=== PATIENT | female | born 1945 | race Caucasian/White ===

== ENCOUNTER → 2017-03-20 | Outpatient (CLI) | payer OTHER, MEDICARE ==
[~2017-03-20] MED LIST: ACETAMINOPHEN500 M1 PO; ACIPHEX 20 MG T20 MG PO; ACIPHEX PO; ADVAIR 100-501 EACH INH; ASPIRIN325 PO; BENADRYL25 MG PO; CARDIZEM CD240 MG PO; CELEBREX 200 M200 M1 PO; CEPACOL SORE T1 EAC8 PO; CIPRO500 MG PO; CLOBETASOL EMOL15 GM TP; COLACE100 MG PO; COZAAR 50 MG TA50 MG PO; DILTIAZEM 24HR240 M1 PO; EVISTA PO; FENTANYL PA12 MCG/HR TD; FLAGYL500 MG PO; FLEXERIL PO; FLUCONAZOLE200 MG PO; FOSAMAX 70 MG T70 MG PO; GLYCOPYRROLATE 11 MG PO; HORIZANT600 MG PO; HYDROCHLOROTHIA25 M2 PO; MELOXICAM7.5 MG PO; NIZORAL120 ML TOP; NUCYNTA50 MG PO; PENNSAID150 ML; REGLAN 5 MG TAB5 MG PO; TIZANIDINE HCL 22 M1 PO; TRANSDERM-SCO1 PATC1 TD; VITAMIN D5000 UNIT PO; ZOFRAN ODT4 MG PO; [UNRECOGNIZED DRUG - OTHER] TOP
== END ==
LOC: NUC 09:04
DX: I47.1 Supraventricular tachycardia (principal)

== ENCOUNTER → 2017-03-23 | Outpatient (CLI) | payer OTHER, MEDICARE ==
[2017-03-23 15:48] LABS: ABSOLUTE NEUTROPHILS 8.2 thou/uL (1.4-8.2); HEMATOCRIT 42.4 % (37.0-47.0); HEMOGLOBIN 14.5 gm/dL (12.0-15.0); LYMPHOCYTES 14.3 % (24.0-44.0); MCH 30.7 pg (26.0-34.0); MCHC 34.1 g/dL (28.0-37.0); MONOCYTES 4.7 % (1.0-8.0); PLATELET COUNT 148 thou/uL (150-400); RBC 4.71 mil/uL (4.20-5.00); RDW 14.7 % (10.5-14.5); WBC 10.3 thou/uL (4.0-11.0)
[2017-03-23 15:52] LABS: MANUAL DIFF NO
== END ==
LOC: LAB 15:12
PROVIDERS: Allergy & Immunology
DX: R06.02 Shortness of breath (principal); M48.56XA Collapsed vertebra, not elsewhere classified, lumbar region, initial encounter for fracture

== ENCOUNTER → 2017-06-26 | Outpatient (CLI) | payer OTHER, MEDICARE | LOC: RAD 09:45 | DX: Z12.31 Encounter for screening mammogram for malignant neoplasm of breast (principal) ==

== ENCOUNTER → 2018-04-01 | Outpatient (CLI) | payer OTHER, MEDICARE | LOC: NUC 06:29 | DX: M81.0 Age-related osteoporosis without current pathological fracture (principal) ==

== ENCOUNTER → 2018-05-10 | Outpatient (CLI) | payer OTHER, MEDICARE ==
[~2018-05-10] VITALS: Ht 157.5 cm; Wt 68.0 kg
[~2018-05-10] MED LIST changes: +ASPIR 8181 MG PO; +COZAAR 50 MG TA50 M2 PO; +DIFLUCAN200 MG PO; +FLONASE 0.05%50 MCG NASAL; +HYOSCYAMINE0.125 MG PO; +PROBIOTIC1 EAC1 PO
--- NOTE | ~2018-05-10 | PATH ---
[facility] [place] [address] PATHOLOGY RPT PROCEDURE Name: RYLIE BENNETT Room #: REG [facility] Bernadette.#: [id number] Admission: 05/10/18 Date of : 47 Discharge: Report #: [id number] Path Case #: [id number] [facility] Accession Number: [id number] . 01 Material submitted: . PART A: RANDOM COLON BIOPSIES PART B: POLYP AT ASCENDING COLON PART C: POLYP AT TRANSVERSE COLON . 02 Diagnosis: A. "Random colon biopsies R/O microscopic colitis", biopsy: - Colonic mucosa with mild reactive changes and focal active colitis; no dysplasia seen. (See comment) . B. "Polyp at ascending colon", biopsy: - Tubular adenoma; no high grade dysplasia. . C. "Polyp at transverse colon", biopsy: - Tubular adenoma; no high grade dysplasia. [facility]/05/11/2018 . 02 Comment: Focal active colitis can be seen in resolving infectious-type colitis, incidentially with bowel preparation and quiescent chronic idiopathic inflammatory bowel disease. No increased chronic inflammation or chronic architectural changes are identified. Clinical and endoscopic correlation is recommended. (CLW:db; 05/11/2018) . 02 Electronically signed: . Maggi Ramirez MD, Pathologist NPI- [id number] . 01 Gross description: . A. Received in formalin labeled "Rylie Bennett, random colon biopsies rule out microscopic colitis" and consists of 4 soft smith tissue fragments ranging in size from 0.2 cm-0.4 cm. They are entirely submitted as A1. . B. Received in formalin labeled "Rylie Bennett, polyp at ascending colon" and consists of 2 soft smith tissue fragment each averaging 0.2 cm. They are entirely submitted as B1. . C. Received in formalin labeled "Rylie Bennett, polyp transverse colon" and consists of a 0.3 cm soft smith pink fragment of tissue fragments fragment which is entirely submitted as C1. (CARLIN; 05/10/2018) /[facility]BR [address] [address] PATHOLOGY RPT PROCEDURE Name: RYLIE BENNETT Room #: REG [facility]#: [id number] Admission: 05/10/18 Date of : 47 Discharge: Report #: [id number] Path Case #: [id number] . 02 Pathologist provided ICD-10: D12.2, D12.3, K52.9 . 02 CPT . 405534, 034864, 424326 Performed at: [address], [place], [place] [id number] MD Zaire Pimentel MD Phone: [phone] Performed at: [address] [id number] MD Jessica Thayer MD Phone: [phone]
--- NOTE | ~2018-05-10 | P ---
[facility] [place] [address] [place] [address] PROCEDURE REPORT Name: ROBBIN BENNETT Room #: REG [facility]#: [id number] Admission: 05/10/18 Attend Phys: Stan Benson Discharge: Date of : 47 Report #: [id number] THIS REPORT FOR: //name// CC: Stan Shah FAM unknown Jonathan Bhatia MD DATE OF SERVICE: 05/10/2018 PROCEDURE PERFORMED: Colonoscopy with biopsies. HISTORY OF PRESENT ILLNESS: The patient is a 72-year-old female who was seen by myself in the office on 04/06/2018. She had a hospitalization in December for diverticulitis, was treated with antibiotics and then was diagnosed with C. diff and underwent 3 rounds of vancomycin and also was treated with Dificid. At the time of the office visit, she was still having some loose stools as well as abdominal pain. Last colonoscopy was in 2014 and pandiverticulosis was noted. No family history of colon cancer. At the time of the visit, I recommended repeating her C. diff. Stool study on 04/07/2018 was negative for C. diff. Plan is for colonoscopy. DESCRIPTION OF PROCEDURE: The risks and benefits of the procedure were explained to the patient and those risks including but not limited to bleeding, perforation and the risk of sedation. She understood these risks and gave informed consent. Sedation was given using propofol per anesthesia. Next, a digital rectal exam was initially performed, which was normal. Next, using a standard a pediatric Olympus colonoscope, the scope was placed in the patient's anus and advanced under direct vision to the cecum. The overall prep was good. I had difficulty advancing the scope through the sigmoid colon. This was somewhat narrowed. Diverticulosis was noted throughout the entire colon. The cecum and ileocecal valve were normal in appearance. In the ascending colon, a 5 mm sessile polyp was noted and this was removed with cold forceps. Transverse colon, a 4 mm sessile polyp also noted and removed with cold biopsy forceps. Random biopsies were also obtained today to rule out the possibility of microscopic colitis. There was no evidence of colitis or pseudomembranes throughout the exam. Again, diverticulosis was noted throughout the colon but the majority of these, which were noted in the sigmoid colon. There was also a narrowing in the sigmoid colon, but no evidence of masses or no mass lesion was noted. The rectal mucosa was normal. On retroflexion, small nonbleeding internal hemorrhoids were noted. The scope was then withdrawn and the procedure terminated and the patient tolerated the procedure well. IMPRESSION: 1. Pandiverticulosis. 2. Multiple diverticula in the sigmoid colon with narrowing in this area likely [facility] [address] [place] [address] PROCEDURE REPORT Name: ROBBIN BENNETT Room #: REG CL Abdiel#: [id number] Admission: 05/10/18 Attend Phys: Stan Benson Discharge: Date of : 47 Report #: [id number] due to scarring. No active diverticulitis noted. 3. Two small colonic polyps. 4. Internal hemorrhoids. RECOMMENDATIONS: 1. Await biopsy results. 2. Continue probiotics. Thank you for allowing me to participate in her care. <ELECTRONICALLY SIGNED> By: Stan Shah MD 05/14/18 1538 [id number] 1211 Stan Shah MD /nt
== END | disposition home or self-care (01) ==
LOC: GI 07:24
DX: D12.3 Benign neoplasm of transverse colon (principal); D12.2 Benign neoplasm of ascending colon; K52.9 Noninfective gastroenteritis and colitis, unspecified; K57.30 Diverticulosis of large intestine without perforation or abscess without bleeding; K64.8 Other hemorrhoids; I10 Essential (primary) hypertension; Z90.49 Acquired absence of other specified parts of digestive tract; Z98.890 Other specified postprocedural states; Z90.710 Acquired absence of both cervix and uterus; Z98.41 Cataract extraction status, right eye; Z98.42 Cataract extraction status, left eye; Z87.19 Personal history of other diseases of the digestive system; Z79.891 Long term (current) use of opiate analgesic; Z79.899 Other long term (current) drug therapy; Z79.82 Long term (current) use of aspirin
CPT/HCPCS: 62110; 62900

== ENCOUNTER 2018-05-18 14:11 | Inpatient (IN) | payer OTHER, MEDICARE ==
[~2018-05-18] VITALS: Ht 157.5 cm; Wt 68.0 kg
--- NOTE | ~2018-05-18 | HC ---
[facility] [place] [address] [place] [address] CONSULTATION Name: ROBBIN BENNETT Room #: 460-P ADM IN M.R.#: [id number] Admission: 05/18/18 Attend Phys: Jonathan Bhatia MD Discharge: Date of : 47 Report #: [id number] THIS REPORT FOR: //name// CC: FAM unknown Jonathan Bhatia DATE OF SERVICE: 05/20/2018 REFERRING PROVIDER: Jonathan Bhatia MD. REASON FOR CONSULT: Abdominal pain. HISTORY OF PRESENT ILLNESS: The patient is a 73-year-old female who has had 3 prior bouts of sigmoid diverticulitis, treated with antibiotics, who was most recently hospitalized in December where she contracted C. diff colitis. The patient underwent 3 rounds of vancomycin and Dificid and is still having loose stools and intermittent abdominal pain. She underwent colonoscopy 10 days ago and recently had a repeat C. diff assay that was negative on 04/07/2018. Her colonoscopy showed pandiverticulosis with multiple diverticula in the sigmoid colon with slight narrowing due to scarring, but no active diverticulitis was noted. Unfortunately, she has developed recurrent left lower abdominal pain with increasing loose stools and low-grade fever with chills and nausea, so she presented to the Emergency Room for evaluation. Workup with laboratories and a CT scan of the abdomen and pelvis were obtained. The patient initially had a low level leukocytosis with a white blood cell count of 11,600, which has improved to 6400 today with antibiotic therapy. Her CT scan of the abdomen and pelvis showed acute sigmoid diverticulitis without perforation and widespread colonic pandiverticulosis consistent with her colonoscopy findings. The patient has been admitted and I am asked to evaluate from a surgical standpoint as this is her fourth bout of acute sigmoid diverticulitis. PAST MEDICAL HISTORY: Hypertension, hypercholesterolemia, prior cardiac ablation, multiple bouts of diverticulitis, recent C. diff colitis, prior hysterectomy, cholecystectomy and appendectomy. HOME MEDICATIONS: Tylenol, diltiazem, Benadryl, aspirin, hydrochlorothiazide, losartan, Diflucan, hyoscyamine, lactobacillus, Flonase, clobetasol topical cream, Fosamax. ALLERGIES: SEVERAL AND INCLUDE CODEINE, HYDROCODONE, OXYCODONE, ADHESIVE, MORPHINE AND AMOXICILLIN, WHICH ALL CAUSE NAUSEA OR ITCHING. SOCIAL HISTORY: The patient does not utilize tobacco, alcohol or illicit drugs. FAMILY HISTORY: Reviewed and noncontributory. [address] [address] CONSULTATION Name: ROBBIN BENNETT Room #: 460-P [facility] ..#: [id number] Admission: 05/18/18 Attend Phys: Jonathan Bhatia MD Discharge: Date of : 47 Report #: [id number] REVIEW OF SYSTEMS: GENERAL: The patient denies current nocturnal fevers or chills. HEENT: No change in vision, change in hearing. NECK: No swelling or difficulty swallowing. HEART: No chest pain or palpitations. LUNGS: No cough or shortness of breath. ABDOMEN: Abdominal pain, but no current nausea or vomiting. GENITOURINARY: No dysuria or hematuria. ENDOCRINE: No polyuria or polydipsia. HEMATOLOGIC: No history of bleeding or easy bruising. EXTREMITIES: No history of weakness or limited range of motion. NEUROLOGIC: No history of syncope or near syncopal episodes. SKIN AND INTEGUMENT: No history of abnormal lesions or moles. PSYCHIATRIC: No history of anxiety or depression. PHYSICAL EXAMINATION: VITAL SIGNS: Temperature 97.3, pulse 77, respirations 18, blood pressure 111/44. She is 5 feet 2 inches tall, weighs 150 pounds. GENERAL: Alert and oriented, in no acute distress. HEENT: Normocephalic, atraumatic. Pupils equal, round, reactive to light. NECK: Supple, without lymphadenopathy. Trachea midline. HEART: Regular rate and rhythm. LUNGS: Clear to auscultation bilaterally. ABDOMEN: Soft, nondistended. She is tender to palpation in left lower quadrant, but does not have any guarding, rebound or peritoneal signs or symptoms. GENITOURINARY: Normal external female genitalia. EXTREMITIES: No clubbing, cyanosis or edema. NEUROLOGIC: Cranial nerves 2-12 are grossly intact. PSYCHIATRIC: Normal mood and affect. SKIN AND INTEGUMENT: No abnormal lesions or moles. LABORATORY AND X-RAY DATA: CBC shows white blood cell count 6400, hemoglobin 11.8, platelets 116,000. Creatinine 0.8. Recent albumin was 3.9. Urinalysis was negative. Recent colonic polypectomies showed no dysplasia and random colon biopsies showed focal active colitis, likely from the sigmoid colon. ASSESSMENT AND PLAN: A 73-year-old female with a fourth bout of acute sigmoid diverticulitis, superimposed on pandiverticulosis and recent Clostridium difficile colitis. The patient is being treated with antibiotic therapy at this time and is currently feeling slightly better and has had normalization of her labs. As this is her fourth bout, I do recommend sigmoid colectomy once she has cleared this acute infectious episode which does take typically 4-6 weeks' time. She does not necessitate on another colonoscopy prior to sigmoid colectomy as she just recently obtained one and her polypectomies returned without dysplasia. All the above was discussed with the patient in detail and she and her [address] [place] [address] CONSULTATION Name: ROBBIN BENNETT Room #: 460-P ADM IN M.R.#: [id number] Admission: 05/18/18 Attend Phys: Jonathan Bhatia MD Discharge: Date of : 47 Report #: [id number] agree to proceed as outlined. I sincerely appreciate this consult. I will follow along while hospitalized and leave any further recommendations in the patient's chart as appropriate. <ELECTRONICALLY SIGNED> By: Humaira Rob MD, FACS 05/21/18 0839 1323 30 Humaira Rob MD, FACS /nt
--- NOTE | ~2018-05-18 | HC ---
[facility] [place] [address] [place] [address] CONSULTATION Name: RYLIE BENNETT Room #: 460-P ADM IN M.R.#: [id number] Admission: 05/18/18 Attend Phys: Jonathan Bhatia MD Discharge: Date of : 47 Report #: [id number] THIS REPORT FOR: //name// CC: FAM unknown Jonathan Bhatia DATE OF SERVICE: 05/22/2018 CONSULTATION: Infectious diseases. HISTORY OF PRESENT ILLNESS: Rylie Bennett is a 73-year-old white female admitted to the hospital on 05/18/2018 with what appeared to be another episode of diverticulitis. The patient was treated with Zosyn. She did improve, but then developed more diarrhea with 7-8 watery stools per day. She said that her pain felt more like her C. difficile episodes, which she had in December. A stool for C. difficile came back positive. In this setting, infectious disease consultation was requested. The patient had a history of C. difficile in December after being treated for respiratory infection. This resolved, and her bowels are doing okay. This is described as her fourth episode of diverticulitis and they are hoping to do a partial colectomy after the acute inflammation resolves. PAST MEDICAL HISTORY: Significant for hypertension, hyperlipidemia, diverticulitis, diverticulosis. The patient had atrial arrhythmias, which were treated with a cardiac ablation with good result. PAST SURGICAL HISTORY: Includes cholecystectomy, appendectomy, hysterectomy, sinus surgery, laminectomy, rotator cuff surgery, cataract surgery, Achilles tendon surgery. ALLERGIES: THE PATIENT HAS ALLERGIES TO A NUMBER OF NARCOTICS INCLUDING CODEINE, HYDROCODONE, OXYCODONE, MORPHINE. SHE NOTES AUGMENTIN CAUSES NAUSEA AND VOMITING. MEDICATION RECONCILIATION: Current medications include saline IV, ondansetron 4 mg q. 6 hours p.r.n., losartan 50 mg daily, aspirin 81 mg daily, diltiazem 250 mg slow release daily, Benadryl 25 mg p.o. p.r.n., Zosyn 3.375 four times a day, Lactobacillus 1 capsule 3 times a day, fluticasone 50 mcg aerosol b.i.d., vancomycin 125 mg p.o. q.i.d., hyoscyamine 0.125 mg q.4 p.r.n., fentanyl 50 mcg q. 2 IV p.r.n., potassium supplement. FAMILY HISTORY: Noncontributory. SOCIAL HISTORY: The patient is . She has no history of tobacco, alcohol nor drugs. 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 REVIEW OF SYSTEMS: GENERAL: The patient did have fevers prior to coming to the hospital, these have resolved. The patient has headache, sinus congestion, sore throat, trouble swallowing. She has overwhelming weakness, malaise and is generally frustrated. The patient denies cough, chest pain or shortness of breath. The patient denies nausea, vomiting. She has abdominal pain, mostly in the left lower quadrant. She has the diarrhea, which she describes is like a liquid powder, with frequent stools. She did not notice the odor like when she had C. difficile in December. The patient denies urinary symptoms, no pain in the extremities. PHYSICAL EXAMINATION: GENERAL: The patient appears her stated age, alert, oriented, comfortable, pleasant, not in any distress. VITAL SIGNS: Temperature is normal, pulse is 78. SKIN: Shows no rash or lesions. ENT: Negative. HEART: Heart sounds normal. LUNGS: Clear. ABDOMEN: Belly obese, soft, mild to moderately tender. Bowel sounds present. EXTREMITIES: Unremarkable. LABORATORY DATA: White count 4.8, hemoglobin has gone from 13.8-11.4, hematocrit 33%, platelet 118,000. Electrolytes: Sodium 143, potassium 2.7-3.2, chloride 116, bicarbonate 22, BUN and creatinine are normal, glucose 124. C. difficile study is negative for toxin and DNA. IMPRESSION: 1. Clostridium difficile colitis. 2. Diverticulitis. The patient has a difficult situation as the diverticulitis requires antibiotic treatment. However, most antibiotics tend to make difficult to clear C. difficile because they kill off so much of the normal competing davide. I agree with the vancomycin 4 times a day. We can increase the probiotics to Lactobacillus 2 tablets t.i.d. and add Saccharomyces boulardii twice a day. I would like to replace the Zosyn with tigecycline. This is a doxycycline type drug that has good activity against GI davide including anaerobes, but also has activity against C. difficile as well. I am hopeful that the C. difficile can be treated with the oral vancomycin and we can stop antibiotics for the diverticulitis once it settles down. The patient will be an excellent candidate for surgical treatment of her [facility] [address] [place] [address] CONSULTATION Name: RYLIE BENNETT Room #: 460-P ADM IN .R.#: [id number] Admission: 05/18/18 Attend Phys: Jonathan Bhatia MD Discharge: Date of : 46 Report #: [id number] diverticulitis once the inflammation has resolved, so we do not run into this problem again. If the patient does not respond to this regimen, we could consider using fidaxomicin instead of vancomycin as this is more potent and has a lower relapse rate; however, if the vancomycin will work, it is a more cost effective treatment. Stool transplant is another option. I appreciate the opportunity of input in the care of the patient. I will be happy to follow through the weekend until Dr. Cruz returns on Thursday. <ELECTRONICALLY SIGNED> By: Nik Herman MD 05/23/182054 21 46 Nik Herman MD /nt
[2018-05-18 15:00] VITALS: BP 114/57
[2018-05-18 15:34] LABS: URINE BILIRUBIN NEGATIVE (Negative); URINE BLOOD NEGATIVE (Negative); URINE CLARITY CLEAR; URINE COLOR YELLOW; URINE GLUCOSE-RANDOM* NEGATIVE (Negative); URINE KETONES NEGATIVE (Negative); URINE LEUKOCYTES-REFLEX NEGATIVE (Negative); URINE NITRITE-REFLEX NEGATIVE (Negative); URINE PROTEIN (DIPSTICK) NEGATIVE (Negative); URINE SPECIFIC GRAVITY <= 1.005 (1.005-1.035); URINE UROBILINOGEN 0.2 E.U./dl (0.2-1.0)
[2018-05-18 15:54] LABS: ABSOLUTE NEUTROPHILS 9.6 thou/uL (1.4-8.2); BASOPHILS 0.4 % (0.0-2.0); EOSINOPHILS 0.4 % (0.0-3.0); HEMOGLOBIN 13.8 gm/dL (12.0-15.0); LYMPHOCYTES 10.4 % (24.0-44.0); MCH 29.8 pg (26.0-34.0); MCHC 33.7 g/dL (28.0-37.0); MCV 88.3 fL (80.0-100.0); MONOCYTES 6.2 % (1.0-8.0); PLATELET COUNT 138 thou/uL (150-400); POLYS 82.6 % (36.0-66.0); RBC 4.65 mil/uL (4.20-5.00); RDW 15.6 % (10.5-14.5); WBC 11.6 thou/uL (4.0-11.0)
[2018-05-18 16:08] LABS: CALCIUM 9.5 mg/dL (8.5-10.1)
[2018-05-18 16:09] LABS: POTASSIUM 2.7 mmol/L (3.5-5.1)
[2018-05-18 16:11] LABS: ALBUMIN 3.9 g/dL (3.4-5.0); TOTAL BILIRUBIN 1.1 mg/dL (<0.1-1.0); TOTAL PROTEIN 7.7 g/dL (6.4-8.2)
[2018-05-18 21:13] VITALS: BP 101/62
[2018-05-18 21:17] VITALS: BP 101/62
[2018-05-18 21:49] VITALS: BP 100/55
[2018-05-19 00:04] VITALS: BP 104/55
[2018-05-19 03:38] VITALS: BP 85/45
[2018-05-19 04:58] VITALS: BP 105/54
[2018-05-19 08:00] VITALS: BP 106/49
[2018-05-19 16:00] VITALS: BP 109/53
[2018-05-19 19:45] VITALS: BP 103/59
[2018-05-20 04:07] VITALS: BP 116/59
[2018-05-20 05:30] LABS: MCH 30.1 pg (26.0-34.0); MCHC 33.8 g/dL (28.0-37.0); RBC 3.93 mil/uL (4.20-5.00); WBC 6.4 thou/uL (4.0-11.0)
[2018-05-20 05:32] LABS: HEMOGLOBIN 11.8 gm/dL (12.0-15.0)
[2018-05-20 05:40] LABS: CREATININE 0.8 mg/dL (0.6-1.0); POTASSIUM 3.3 mmol/L (3.5-5.1)
[2018-05-20 08:00] VITALS: BP 111/44
[2018-05-20 15:57] VITALS: BP 107/65
[2018-05-20 19:58] VITALS: BP 107/59
[2018-05-21 03:40] VITALS: BP 102/52
[2018-05-21 05:22] LABS: HEMATOCRIT 33.5 % (37.0-47.0); HEMOGLOBIN 11.4 gm/dL (12.0-15.0); MCH 30.3 pg (26.0-34.0); MCHC 33.9 g/dL (28.0-37.0); MCV 89.2 fL (80.0-100.0); RBC 3.75 mil/uL (4.20-5.00); WBC 4.8 thou/uL (4.0-11.0)
[2018-05-21 05:36] LABS: CALCIUM 7.8 mg/dL (8.5-10.1); CREATININE 0.7 mg/dL (0.6-1.0); POTASSIUM 3.2 mmol/L (3.5-5.1)
[2018-05-21 08:40] VITALS: BP 108/62
[2018-05-21 09:19] LABS: ALBUMIN 2.6 g/dL (3.4-5.0); DIRECT BILIRUBIN 0.1 mg/dL (<0.1-0.3); TOTAL BILIRUBIN 0.5 mg/dL (<0.1-1.0); TOTAL PROTEIN 5.6 g/dL (6.4-8.2)
[2018-05-21 15:54] VITALS: BP 99/54
[2018-05-21 19:53] VITALS: BP 111/47
[2018-05-22 03:48] VITALS: BP 87/43
[2018-05-22 05:00] VITALS: BP 104/55
[2018-05-22 08:15] VITALS: BP 149/88
[2018-05-22 16:00] VITALS: BP 115/65
[2018-05-22 20:02] VITALS: BP 115/57
[2018-05-23 03:59] VITALS: BP 126/61
[2018-05-23 05:57] LABS: HEMATOCRIT 32.3 % (37.0-47.0); HEMOGLOBIN 11.1 gm/dL (12.0-15.0); MCH 30.4 pg (26.0-34.0); MCHC 34.3 g/dL (28.0-37.0); MCV 88.7 fL (80.0-100.0); RBC 3.63 mil/uL (4.20-5.00); RDW 15.3 % (10.5-14.5); WBC 3.1 thou/uL (4.0-11.0)
[2018-05-23 06:17] LABS: ALBUMIN 2.5 g/dL (3.4-5.0); CREATININE 0.6 mg/dL (0.6-1.0); PHOSPHORUS 2.3 mg/dL (2.5-4.9); POTASSIUM 4.2 mmol/L (3.5-5.1)
[2018-05-23 07:50] VITALS: BP 118/74
[2018-05-23 15:30] VITALS: BP 119/66
[2018-05-23 19:21] VITALS: BP 133/70
[2018-05-24 03:51] VITALS: BP 109/62
[2018-05-24 05:14] LABS: HEMATOCRIT 34.2 % (37.0-47.0); HEMOGLOBIN 11.5 gm/dL (12.0-15.0); MCH 30.1 pg (26.0-34.0); MCHC 33.6 g/dL (28.0-37.0); MCV 89.6 fL (80.0-100.0); RBC 3.82 mil/uL (4.20-5.00); RDW 15.5 % (10.5-14.5)
[2018-05-24 05:48] LABS: ALBUMIN 2.6 g/dL (3.4-5.0); CALCIUM 8.4 mg/dL (8.5-10.1); CREATININE 0.7 mg/dL (0.6-1.0); POTASSIUM 4.1 mmol/L (3.5-5.1); TOTAL BILIRUBIN 0.3 mg/dL (<0.1-1.0); TOTAL PROTEIN 5.6 g/dL (6.4-8.2)
[2018-05-24 07:45] VITALS: BP 121/64
[2018-05-24 15:29] VITALS: BP 127/74
[2018-05-24 20:00] VITALS: BP 123/59
[2018-05-25 04:00] VITALS: BP 101/54
[2018-05-25 07:30] VITALS: BP 105/60
[2018-05-25] MEDS ORDERED: VANCOMYCIN HCL10 GM PO (13:34)
[2018-05-25] MEDS ORDERED: CEFDINIR300 MG PO (13:35)
[2018-05-25 14:51] VITALS: BP 105/60
[2018-05-25] MEDS ORDERED: FLAGYL500 MG PO (15:30)
== END 2018-05-25 16:42 | disposition home or self-care (01) | DRG 871 ==
LOC: ER 14:11 → EROBS 18:00 → 4W 18:00 → ENTRNSPT 05-25 16:23 → 4W 05-25 16:42
PROVIDERS: Emergency Medicine; Family Medicine; Hospitalist; Internal Medicine Gastroenterology; Physician Assistant
DX: A41.9 Sepsis, unspecified organism (principal); E43 Unspecified severe protein-calorie malnutrition; A04.72 Enterocolitis due to Clostridium difficile, not specified as recurrent; K57.32 Diverticulitis of large intestine without perforation or abscess without bleeding; K62.5 Hemorrhage of anus and rectum; E87.6 Hypokalemia; D69.6 Thrombocytopenia, unspecified; I10 Essential (primary) hypertension; K44.9 Diaphragmatic hernia without obstruction or gangrene; K57.30 Diverticulosis of large intestine without perforation or abscess without bleeding; Z90.710 Acquired absence of both cervix and uterus; M81.0 Age-related osteoporosis without current pathological fracture; E78.00 Pure hypercholesterolemia, unspecified; K76.0 Fatty (change of) liver, not elsewhere classified; Z96.1 Presence of intraocular lens; Z68.27 Body mass index [BMI] 27.0-27.9, adult; Z88.8 Allergy status to other drugs, medicaments and biological substances; Z91.048 Other nonmedicinal substance allergy status; Z90.49 Acquired absence of other specified parts of digestive tract; Z98.42 Cataract extraction status, left eye; Z98.41 Cataract extraction status, right eye
CPT/HCPCS: 10045

== ENCOUNTER 2018-06-11 16:06 | Inpatient (IN) | payer OTHER, MEDICARE ==
[~2018-06-11] VITALS: Ht 162.6 cm; Wt 68.0 kg
--- NOTE | ~2018-06-11 | HC ---
[facility] [place] [address] CONSULTATION Name: ROBBIN BENNETT Room #: 450-P ADM IN M.R.#: [id number] Admission: 06/11/18 Attend Phys: Jonathan Bhatia MD Discharge: Date of : 47 Report #: [id number] THIS REPORT FOR: //name// CC: Jonathan Bhatia DATE OF SERVICE: 06/14/2018 REASON FOR CONSULTATION: Right shoulder pain. HISTORY OF PRESENT ILLNESS: The patient is a 73-year-old female who was on an escalator last Thursday when she fell down multiple steps. She reports multiple bruises and hematomas with lacerations to her right side of her body. She continues to have some shoulder pain, and we have been asked to evaluate her shoulder. PAST MEDICAL HISTORY: Significant for diverticulitis. ALLERGIES: CODEINE, HYDROCODONE, OXYCODONE, ADHESIVE, MORPHINE, POTASSIUM CLAVULANATE AND AMOXICILLIN. MEDICATIONS: Include acetaminophen, diltiazem, diphenhydramine, aspirin, hydrochlorothiazide, losartan, fluconazole, hyoscyamine, lactobacillus, fluticasone, clobetasol. alendronate sodium. SURGICAL HISTORY: Appendectomy, tonsillectomy, multiple sinus surgeries, hysterectomy, cholecystectomy, right rotator cuff repair approximately 10 years ago, Achilles tendon repair, cardiac ablation, lumbar laminectomy. She is scheduled to undergo partial colectomy for diverticulitis in June. SOCIAL HISTORY: She is . 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 She does not use any ambulatory aids. Denies smoking or drinking alcohol. REVIEW OF SYSTEMS: MUSCULOSKELETAL: Reports multiple lacerations and abrasions to her right and left lower and right upper with a hematoma in her right thigh. NEUROLOGIC: Denies numbness or tingling. PHYSICAL EXAMINATION: GENERAL: The patient is alert and oriented. She interacts appropriately. She is a well-developed, well-nourished female, in no acute distress. Her is at her bedside. VITAL SIGNS: Most recent vital signs show temperature of 36.8, heart rate 87, respiration rate 18, blood pressure 108/57, pulse oximetry is 94% on room air. EXTREMITIES: Examination of her right upper extremity, she is distally neurovascularly intact. Brisk capillary refill. She has some diffuse arthritic [address] [address] CONSULTATION Name: ROBBIN BENNETT Room #: [facility] IN M.R.#: [id number] Admission: 06/11/18 Attend Phys: Jonathan Bhatia MD Discharge: Date of : 47 Report #: [id number] changes to her digits. Her skin is clean, dry and intact. She does have a bandage over the right arm. She has significant amount of ecchymosis in her arm, mild to moderate amount of edema. She is nontender to palpation throughout the hand, wrist, forearm and elbow, some diffuse tenderness in her humerus. There is diffuse mild tenderness at clavicle, none at the sternum. She has some right anterior chest wall tenderness. There is no pain with range of motion of her shoulder. She is able to fully abduct without pain, and internal rotation is normal. Left upper extremity exam: Sensation is intact to light touch throughout. She has brisk capillary refill. She has full fist, full extension on both of her upper extremities. There is no tenderness to palpation throughout the entire left upper extremity. No pain with range of motion of the shoulder, elbow, wrist, forearm or hand. The bilateral lower extremity exam: Sensation is intact to light touch throughout. Brisk cap refill. EHL, FHL, dorsiflexion and plantar flexion are intact. She has no pain with range of motion of entire bilateral lower extremities. LABORATORY DATA: Shows white blood cell count 12.7, hemoglobin 11.6, hematocrit 34.2, platelet count 228. Chemistry is grossly normal. RADIOGRAPHS: AP and oblique view of the right clavicle. No evidence of clavicle fracture. True AP and axillary lateral view of the shoulder did not show any evidence of a proximal humerus fracture. IMPRESSION AND PLAN: Right upper extremity contusion without evidence of fracture or rotator cuff injury. She may do her activity as tolerated and follow up with Dr. Cartwright in a few weeks if her symptoms are not improving. Please call me if needed. By: 1635 1731 Sarah Jarrett MD /nt
[~2018-06-11 16:06] MED LIST changes: +CEFDINIR300 MG PO; +VANCOMYCIN HCL10 GM PO
[2018-06-11 16:08] VITALS: BP 150/68
[2018-06-11 18:43] VITALS: BP 150/68
[2018-06-11 19:29] VITALS: BP 152/77
[2018-06-11 19:35] VITALS: BP 118/62; BP 123/59
[2018-06-11 21:13] LABS: ABSOLUTE NEUTROPHILS 10.7 thou/uL (1.4-8.2); BASOPHILS 0.2 % (0.0-2.0); EOSINOPHILS 0.2 % (0.0-3.0); HEMATOCRIT 34.2 % (37.0-47.0); HEMOGLOBIN 11.6 gm/dL (12.0-15.0); LYMPHOCYTES 7.7 % (24.0-44.0); MCH 30.5 pg (26.0-34.0); MCV 89.8 fL (80.0-100.0); MONOCYTES 7.6 % (1.0-8.0); PLATELET COUNT 228 thou/uL (150-400); POLYS 84.3 % (36.0-66.0); RBC 3.81 mil/uL (4.20-5.00); RDW 15.5 % (10.5-14.5); WBC 12.7 thou/uL (4.0-11.0)
[2018-06-11 21:20] LABS: CALCIUM 8.5 mg/dL (8.5-10.1); CREATININE 0.8 mg/dL (0.6-1.0); POTASSIUM 3.7 mmol/L (3.5-5.1)
[2018-06-12 04:09] VITALS: BP 103/61
[2018-06-12] MEDS ORDERED: DURAGESIC25 MCG/HR TRANSDERM (08:51)
[2018-06-12 13:30] VITALS: BP 103/61
[2018-06-12 15:38] VITALS: BP 130/65
[2018-06-12 19:16] VITALS: BP 127/69
[2018-06-13] VITALS (7 sets, daily range): BP systolic 106–131; BP diastolic 57–81
[2018-06-14 02:55] VITALS: BP 135/77
[2018-06-14 08:00] VITALS: BP 110/61
[2018-06-14 15:47] VITALS: BP 108/57
[2018-06-14 19:20] VITALS: BP 113/66
[2018-06-15 05:18] VITALS: BP 109/68
[2018-06-15] MEDS ORDERED: ONDANSETRON HCL4 M2 PO (07:33)
[2018-06-15 08:44] VITALS: BP 108/59
== END 2018-06-15 12:35 | disposition home or self-care (01) | DRG 604 ==
LOC: ER 16:06 → 4W 18:26 → EROBS 18:26 → 4W 19:22 → ENTRNSPT 06-15 12:20 → EDTRNSPTSTS 06-15 12:23 → 4W 06-15 12:35
PROVIDERS: Physician Assistant
DX: S51.011A Laceration without foreign body of right elbow, initial encounter (principal); E43 Unspecified severe protein-calorie malnutrition; S91.012A Laceration without foreign body, left ankle, initial encounter; S70.11XA Contusion of right thigh, initial encounter; S09.90XA Unspecified injury of head, initial encounter; I10 Essential (primary) hypertension; S40.011A Contusion of right shoulder, initial encounter; K59.00 Constipation, unspecified; W10.0XXA Fall (on)(from) escalator, initial encounter; Z96.1 Presence of intraocular lens; Z68.25 Body mass index [BMI] 25.0-25.9, adult; Z88.6 Allergy status to analgesic agent; Z88.1 Allergy status to other antibiotic agents; Z88.8 Allergy status to other drugs, medicaments and biological substances; Y93.89 Activity, other specified; Y92.89 Other specified places as the place of occurrence of the external cause; Y99.8 Other external cause status; Z90.49 Acquired absence of other specified parts of digestive tract; Z90.710 Acquired absence of both cervix and uterus; Z98.42 Cataract extraction status, left eye; Z98.41 Cataract extraction status, right eye
CPT/HCPCS: 10040

== ENCOUNTER → 2018-06-23 | Outpatient (CLI) | payer OTHER, MEDICARE ==
[~2018-06-23] MED LIST changes: +DURAGESIC25 MCG/HR TRANSDERM; +ONDANSETRON HCL4 M2 PO
== END ==
LOC: HYPER 06:43
DX: S70.11XD Contusion of right thigh, subsequent encounter (principal); S41.101D Unspecified open wound of right upper arm, subsequent encounter; S81.812D Laceration without foreign body, left lower leg, subsequent encounter; S70.12XD Contusion of left thigh, subsequent encounter; I10 Essential (primary) hypertension; M25.511 Pain in right shoulder; M79.81 Nontraumatic hematoma of soft tissue; Z90.710 Acquired absence of both cervix and uterus; Z91.81 History of falling; Z98.49 Cataract extraction status, unspecified eye; X58.XXXD Exposure to other specified factors, subsequent encounter

== ENCOUNTER → 2018-06-25 | Outpatient (CLI) | payer OTHER, MEDICARE | LOC: HYPER 08:02 | DX: S70.11XD Contusion of right thigh, subsequent encounter (principal); S41.101D Unspecified open wound of right upper arm, subsequent encounter; S81.812D Laceration without foreign body, left lower leg, subsequent encounter; I10 Essential (primary) hypertension; M25.511 Pain in right shoulder; M79.662 Pain in left lower leg; M79.81 Nontraumatic hematoma of soft tissue; Z90.710 Acquired absence of both cervix and uterus; Z98.49 Cataract extraction status, unspecified eye; Z91.81 History of falling; X58.XXXD Exposure to other specified factors, subsequent encounter ==

== ENCOUNTER → 2018-06-30 | Outpatient (CLI) | payer OTHER, MEDICARE | LOC: HYPER 06:42 | DX: T81.89XD Other complications of procedures, not elsewhere classified, subsequent encounter (principal); S70.11XD Contusion of right thigh, subsequent encounter; I10 Essential (primary) hypertension; M79.81 Nontraumatic hematoma of soft tissue; M79.662 Pain in left lower leg; Z90.710 Acquired absence of both cervix and uterus; Z90.81 Acquired absence of spleen; X58.XXXD Exposure to other specified factors, subsequent encounter; Y83.8 Other surgical procedures as the cause of abnormal reaction of the patient, or of later complication, without mention of misadventure at the time of the procedure ==

== ENCOUNTER → 2018-07-16 | Outpatient (CLI) | payer OTHER, MEDICARE | LOC: HYPER 08:05 | DX: T81.89XD Other complications of procedures, not elsewhere classified, subsequent encounter (principal); I10 Essential (primary) hypertension; M25.511 Pain in right shoulder; Z91.81 History of falling; Y83.8 Other surgical procedures as the cause of abnormal reaction of the patient, or of later complication, without mention of misadventure at the time of the procedure ==

== ENCOUNTER 2018-08-12 06:04 | Inpatient (IN) | payer OTHER, MEDICARE ==
[2018-08-12] VITALS (8 sets, daily range): BP systolic 78–127; BP diastolic 34–59
[~2018-08-12] VITALS: Ht 157.5 cm; Wt 70.3 kg
--- NOTE | ~2018-08-12 | O ---
[facility] [place] [address] OPERATIVE REPORT Name: ROBBIN BENNETT Room #: 355-P ADM IN M.R.#: [id number] Admission: 08/12/18 Attend Phys: Humaira Rob MD, Discharge: Date of : 47 Report #: [id number] THIS REPORT FOR: //name// CC: Humaira Bhatia DATE OF SERVICE: 08/12/2018 PREOPERATIVE DIAGNOSES: Multiple recurrent bouts of sigmoid diverticulitis. POSTOPERATIVE DIAGNOSES: Multiple recurrent bouts of sigmoid diverticulitis. PROCEDURES PERFORMED: 1. Laparoscopic sigmoid colectomy. 2. Laparoscopic mobilization of splenic flexure. SURGEON: Humaira Rob M.D. CURBSTONE SETTER: SELENE Garcia ANESTHESIA: General endotracheal anesthesia. ESTIMATED BLOOD LOSS: Minimal (less than 5 mL). COMPLICATIONS: None appreciated. SPECIMENS: Sigmoid colon to pathology with open end marking distal. INDICATIONS: The patient is a 73-year-old female who has had multiple bouts of acute sigmoid diverticulitis with ongoing intermittent left lower quadrant abdominal pain. The patient has undergone colonoscopy showing marked abnormal findings in the sigmoid colon consistent with chronic bouts of diverticulitis and as such indication was for resection today. DESCRIPTION OF PROCEDURE: After explaining the risks, benefits and alternatives of the procedure to the patient in detail in the preoperative holding area and obtaining written consent, the patient was brought to the operating room and placed supine on the operating room table. After conducting a thorough timeout procedure verifying correct patient and procedure, the patient was given general endotracheal anesthesia. Once adequate anesthesia was obtained, her SCDs were hooked up to pneumatic compression device and she was given a preoperative dose of antibiotics in line with the SCIP protocol. The patient's abdomen was prepped and draped in standard surgical sterile fashion after positioning her in the low lithotomy position with her legs in the Yellofin stirrups. A 5 mL of 0.5% Marcaine with epinephrine were used to anesthetize the skin 2 cm cephalad to the umbilicus and 2 cm to the patient's right. A #15 bladed scalpel was used [address] [address] OPERATIVE REPORT Name: ROBBIN BENNETT YI Room #: 355-P [facility] IN .R.#: [id number] Admission: 08/12/18 Attend Phys: Humaira Rob MD, Discharge: Date of : 46 Report #: [id number] to create a small skin elizabeth at this location. A 5 mm Visiport was placed over 0-degree 5-mm laparoscope and was introduced through this incision site. Once intra-abdominal placement was verified visually, the obturator for the trocar and laparoscope were both removed and the abdomen was insufflated to 15 mmHg using carbon dioxide gas. The laparoscope was changed to a 5-mm 30-degree laparoscope, which was reintroduced through this trocar. The entire abdomen was evaluated to ensure no injury upon entry. I now placed an additional 5 mm port 2 cm cephalad to the umbilicus and 3 cm of the patient's left and an additional 12 mm port in the right lower quadrant. Both additional trocars were placed under direct vision after anesthetizing the skin at each location with 5 mL of 0.5% Marcaine with epinephrine and I had created small skin nicks using #15 bladed scalpel. The patient was now placed in steep Trendelenburg position with the left side elevated and I proceeded to identify the sigmoid colon, which was scarred to the abdominal wall and the pelvic sidewall. There was a loop of small bowel plastered to it as well. Laparoscopic EndoShears were now used to take down the filmy adhesions between the loops of small bowel and the colon and I was able to ultimately sweep the bowel into the upper abdomen. I now took down the colon off of the anterior abdominal and left pelvic sidewalls using combination of EndoShears and the articulating EnSeal device. Once I had taken all these adhesions down, I was able to elevate the diseased colon cephalad and identified the rectosigmoid juncture, which was healthy. I opened the mesentery with the EnSeal device and proceeded to create a window in the mesentery using the EnSeal device for hemostasis. The [place] 60 mm stapler with a blue load was now entered into the abdomen through the 12 mm port and one blade of the stapler was passed through the window in the mesentery. The stapler was clamped and fired completely transecting the colon at the healthy rectosigmoid juncture. The proximal staple line was elevated and I began taking down the mesentery, staying on the wall of the colon with the EnSeal device for hemostasis as far cephalad as needed until I was proximal to the diseased portion. I now mobilized the white line of Toldt in the patient's left lateral abdomen and performed mobilization of splenic flexure as I was needing extra length to create a tension-free anastomosis. Once I had come all the way up and over the splenic flexure, I was able to get the whole colon to drop down low in the pelvis and an appropriate site for extraction was identified in the suprapubic location. A 10 mL of 0.5% Marcaine with epinephrine were used to anesthetize the skin at that location and a 4 cm transverse skin incision was made using #15 bladed scalpel. Electrocautery was used to carry this down through skin and subcutaneous tissues for hemostasis until I arrived upon the fascia, which was opened longitudinally under direct vision with the laparoscope. I was then able to place a Gelport wound protector through this defect and delivered the colon through the wound protector. The appropriate healthy site proximal to the diseased segment of sigmoid colon was identified and the auto pursestring suture device was placed and the diseased bowel was removed with curved Brink scissors and passed off the field with the open end marking proximal. The auto pursestring suture device was removed and Allis clamps were used to triangulate the open end of bowel. This was sized with the EEA sizers showing the [facility] [address] [place] [address] OPERATIVE REPORT Name: ROBBIN BENNETT YI Room #: 355-P [facility] IN [facility].#: [id number] Admission: 08/12/18 Attend Phys: Humaira Rob MD, Discharge: Date of : 46 Report #: [id number] appropriate sized device to be a 29 EEA. The anvil for the 29 EEA was placed in the open end of colon and the suture from the auto pursestring suture device was tied down. This colon was placed back in the abdomen and the Gelport top was placed on the wound protector and the abdomen was fully reinsufflated. The EEA sizers were now used under direct vision to size the rectum and showed 29 EEA sizer to be appropriate as well. The 29 EEA stapler was then traversed into the rectal stump to the distal staple line where the spike was delivered through the middle portion of the staple line. The spike and anvil were then mated and the stapler was ratcheted down ensuring no twisting of the colon. The stapler was fired and removed showing 2 complete beefy donuts for the anastomotic rings. We now performed a leak test by filling the pelvis with normal saline and clamping the bowel proximally and using the rigid proctoscope to fully insufflate across the anastomosis showing excellent tidaling of the fluid and insufflation of the bowel, but no bubbling whatsoever, thereby signifying a negative leak test. There was one area of a questionable serosal defect approximately 10 cm proximal to the anastomosis and as such 3-0 PDS was placed in the abdomen through the 12 mm port, and I proceeded to oversew this with 3 separate Lembert sutures using the 3-0 PDS intracorporeally. Normal saline was suctioned out of the abdomen. Final evaluation showed a tension-free anastomosis that was appropriately oriented and had robust blood supply. No other pathologic findings were identified. I now closed the 12 mm fascial incision using 0 PDS suture on a Vicente-Livier suture passer device and tied this down under direct vision. The wound protector was removed and the fascia was closed vertically using #1 PDS in standard running fashion. The abdomen was fully desufflated. All remaining trocars were removed under direct vision. A 4-0 Monocryl was used in a standard subcuticular fashion for all skin incisions and Dermabond glue was applied to all skin wounds. At the end of the procedure, all instrument, needle and sponge counts were correct. The patient tolerated the procedure without incident, was awakened in the operating room, transitioned to the recovery room in stable condition with no apparent complications. <ELECTRONICALLY SIGNED> By: Humaira Rob MD, FACS 08/13/18 1012 [id number] [id number] Humaira Rob MD, FACS /nt
--- NOTE | ~2018-08-12 | PATH ---
[facility] [place] [address] PATHOLOGY RPT PROCEDURE Name: RYLIE BENNETT Room #: 361-P ADM IN M.R.#: [id number] Admission: 08/12/18 Date of : 47 Discharge: Report #: [id number] Path Case #: [id number] [facility] Accession Number: [id number] . 01 Material submitted: . SEGMENT OF SIGMOID COLON . 01 Clinical history: . Diverticulitis . 02 Diagnosis: Large intestine, sigmoid colon segment, colectomy: - Acute and chronic diverticulitis associated with focal serositis, compatible with perforation. - Extensive diverticulosis in the background. - Margins of resection unremarkable. - Three reactive lymph nodes. (IUV:manolo; 08/16/2018) QMS/08/16/2018 . 02 Electronically signed: . Jessica Thayer MD, Pathologist NPI- [id number] . 01 Gross description: . The specimen is received in formalin, labeled "Rylie Bennett, segment sigmoid colon" and consists of an unoriented segment of colon measuring 11.0 cm in length and 2.5 cm in diameter with pericolic fat up to 3.0 cm. One margin is closed with tien while the other margin is open. The serosa is pink-smith and partially encased with adhesions. The specimen is opened to reveal a pink-smith mucosa without masses or lesions. The wall is markedly thickened up to 0.9 cm and further sectioning reveal multiple diverticula ranging from 0.3 cm to 1.4 cm including a possible perforation with surrounding mucoid/gelatinous material. Sectioning the pericolic fat reveals no identifiable lymph node candidates. Wood Strip Block Floor Installer sections are submitted as follows: . A1: Open margin A2: Stapled margin A3-A4: Possible perforation A5-A6: Additional diverticula (SDY; 08/13/2018) SYU/SYU . 02 Pathologist provided ICD-10: K57.20, K65.8, K57.32 . 02 [place] [address] PATHOLOGY RPT PROCEDURE Name: RYLIE BENNETT YI Room #: [address] [place] [address] IN .R.#: [id number] Admission: 08/12/18 Date of : 47 Discharge: Report #: [id number] Path Case #: [id number] [facility] . [id number] Specimen Comment: A courtesy copy of this report has been sent to Specimen Comment: [phone], . Specimen Comment: Report sent to and Performed at: [address], [place], [place] [id number] MD Zaire Pimentel MD Phone: [phone] Performed at: [address], [place], [place] [id number] MD Jessica Thayer MD Phone: [phone]
[~2018-08-12 06:04] MED LIST changes: +ALENDRONATE SOD70 MG PO; +CENTRUM SILVER1 EAC4 PO; +VITAMINC500 PO; +XANAX 0.25 MG0.25 MG PO
[2018-08-12 08:47] LABS: HEMATOCRIT 35.5 % (37.0-47.0); HEMOGLOBIN 11.8 gm/dL (12.0-15.0)
[2018-08-12 08:57] LABS: CALCIUM 9.9 mg/dL (8.5-10.1); POTASSIUM 3.7 mmol/L (3.5-5.1)
[2018-08-12 18:04] LABS: HEMATOCRIT 32.4 % (37.0-47.0); HEMOGLOBIN 10.7 gm/dL (12.0-15.0)
[2018-08-13 04:05] VITALS: BP 101/57
[2018-08-13 05:52] LABS: HEMOGLOBIN 10.1 gm/dL (12.0-15.0); MCH 26.7 pg (26.0-34.0); MCHC 31.4 g/dL (28.0-37.0); MCV 84.8 fL (80.0-100.0); RBC 3.78 mil/uL (4.20-5.00); RDW 15.1 % (10.5-14.5)
[2018-08-13 06:05] LABS: CREATININE 1.6 mg/dL (0.6-1.0); POTASSIUM 4.3 mmol/L (3.5-5.1)
[2018-08-13 06:06] LABS: CALCIUM 7.9 mg/dL (8.5-10.1)
[2018-08-13 08:08] VITALS: BP 106/54
[2018-08-13 16:25] VITALS: BP 114/55
[2018-08-13 20:00] VITALS: BP 118/54
[2018-08-14 03:30] VITALS: BP 97/53
[2018-08-14 06:30] LABS: BASOPHILS 0.1 % (0.0-2.0); HEMATOCRIT 26.9 % (37.0-47.0); HEMOGLOBIN 8.9 gm/dL (12.0-15.0); LYMPHOCYTES 4.6 % (24.0-44.0); MCH 27.5 pg (26.0-34.0); MCHC 33.1 g/dL (28.0-37.0); MCV 83.1 fL (80.0-100.0); MONOCYTES 5.9 % (1.0-8.0); PLATELET COUNT 87 thou/uL (150-400); POLYS 89.4 % (36.0-66.0); RBC 3.24 mil/uL (4.20-5.00); RDW 15.5 % (10.5-14.5); WBC 10.1 thou/uL (4.0-11.0)
[2018-08-14 06:36] LABS: CALCIUM 8.4 mg/dL (8.5-10.1); CREATININE 1.5 mg/dL (0.6-1.0)
[2018-08-14 06:41] LABS: POTASSIUM 5.3 mmol/L (3.5-5.1)
[2018-08-14 07:23] VITALS: BP 125/65
[2018-08-14 11:59] VITALS: BP 124/64
[2018-08-14 16:43] VITALS: BP 137/70
[2018-08-14 19:25] VITALS: BP 129/69
[2018-08-15 04:00] VITALS: BP 124/60
[2018-08-15 05:50] LABS: EOSINOPHILS 0.4 % (0.0-3.0); HEMATOCRIT 25.9 % (37.0-47.0); HEMOGLOBIN 8.4 gm/dL (12.0-15.0); LYMPHOCYTES 14.5 % (24.0-44.0); MCHC 32.5 g/dL (28.0-37.0); MCV 83.1 fL (80.0-100.0); MONOCYTES 8.1 % (1.0-8.0); PLATELET COUNT 73 thou/uL (150-400); RBC 3.12 mil/uL (4.20-5.00); RDW 15.7 % (10.5-14.5); WBC 5.2 thou/uL (4.0-11.0)
[2018-08-15 06:01] LABS: CALCIUM 8.7 mg/dL (8.5-10.1); CREATININE 1.7 mg/dL (0.6-1.0); POTASSIUM 4.1 mmol/L (3.5-5.1)
[2018-08-15 07:53] VITALS: BP 122/61
[2018-08-15 11:14] VITALS: BP 137/68
[2018-08-15 16:08] VITALS: BP 106/50
[2018-08-15 19:33] VITALS: BP 128/72
[2018-08-16 04:59] VITALS: BP 117/60
[2018-08-16 06:06] LABS: HEMATOCRIT 25.6 % (37.0-47.0); HEMOGLOBIN 8.5 gm/dL (12.0-15.0); MCH 27.1 pg (26.0-34.0); MCHC 33.1 g/dL (28.0-37.0); MCV 81.8 fL (80.0-100.0); RBC 3.12 mil/uL (4.20-5.00); RDW 15.9 % (10.5-14.5); WBC 4.8 thou/uL (4.0-11.0)
[2018-08-16 06:09] LABS: CALCIUM 8.4 mg/dL (8.5-10.1); CREATININE 1.6 mg/dL (0.6-1.0)
[2018-08-16 08:38] VITALS: BP 141/82
[2018-08-16 20:10] VITALS: BP 113/57
[2018-08-17 04:30] VITALS: BP 110/61
[2018-08-17 11:32] VITALS: BP 110/61
== END 2018-08-17 11:55 | disposition home or self-care (01) | DRG 329 ==
LOC: TBA 06:04 → 3W 06:04 → OR 09:14 → EDSTATUS 09:27 → PRE 09:30 → 3W 14:29 → ENTRNSPT 08-17 11:41 → EDTRNSPTSTS 08-17 11:46 → 3W 08-17 11:55
PROVIDERS: Family Medicine; Hospitalist; Surgery
PROC: 0DBN4ZZ Excision of Sigmoid Colon, Percutaneous Endoscopic Approach (ICD-10-PCS; principal; 2018-08-12)
DX: K57.32 Diverticulitis of large intestine without perforation or abscess without bleeding (principal); N17.0 Acute kidney failure with tubular necrosis; N17.9 Acute kidney failure, unspecified; I95.9 Hypotension, unspecified; E87.5 Hyperkalemia; I10 Essential (primary) hypertension; Z91.048 Other nonmedicinal substance allergy status; Z90.710 Acquired absence of both cervix and uterus; Z90.49 Acquired absence of other specified parts of digestive tract; Z98.42 Cataract extraction status, left eye; Z98.41 Cataract extraction status, right eye; Z79.82 Long term (current) use of aspirin; Z79.899 Other long term (current) drug therapy; Z88.1 Allergy status to other antibiotic agents; Z88.5 Allergy status to narcotic agent; Z88.8 Allergy status to other drugs, medicaments and biological substances
CPT/HCPCS: 10779; 50010; 50101; 50221; 50249; 50290; 50386; 50555; 50558; 50740; 50804; 50900; 51398; 51437; 51489; 52265; 53307; 54022; 54118; 56462; 56525; 56526; 56527; 56753; 57092; 57108; 62110; 62900; 70005

== ENCOUNTER → 2018-09-21 | Outpatient (CLI) | payer OTHER, MEDICARE | LOC: ULTRA 09:47 | DX: R10.2 Pelvic and perineal pain (principal); Z90.710 Acquired absence of both cervix and uterus ==

== ENCOUNTER → 2019-07-25 | Outpatient (CLI) | payer OTHER, MEDICARE | LOC: RAD 14:30 | DX: Z12.31 Encounter for screening mammogram for malignant neoplasm of breast (principal) ==

== ENCOUNTER → 2019-11-24 | Outpatient (CLI) | payer OTHER, MEDICARE | LOC: RAD 15:50 | DX: M41.86 Other forms of scoliosis, lumbar region (principal); I70.0 Atherosclerosis of aorta ==

== ENCOUNTER → 2019-12-02 | Outpatient (CLI) | payer OTHER, MEDICARE ==
[~2019-12-02] VITALS: Ht 157.5 cm; Wt 72.6 kg
[~2019-12-02] MED LIST changes: +MICROZIDE12.5 MG PO
--- NOTE | 2019-12-05 17:06 | PATH ---
[facility] [place] [address] [place] [address] PATHOLOGY RPT PROCEDURE Name: ROBBIN BENNETT Room #: REG MICHAEL Bernadette.#: [id number] Admission: 12/02/19 Date of : 47 Discharge: Report #: [id number] Path Case #: [id number] [facility] Accession Number: [id number] . 01 Material submitted: . PART A: duodenum - BIOPSY OF DUODENUM R/O SPRUE PART B: stomach - BIOPSY OF GASTRITIS R/O H. PYLORI PART C: stomach - BIOPSY OF THICKENED GASTRIC FOLD PART D: colon - RANDOM COLON BIOPSY R/O MICROSCOPIC COLITIS PART E: colon - POLYP AT SIGMOID COLON . Modifiers: sigmoid . 01 Clinical history: . Abdominal pain . 02 Diagnosis: A. Small bowel mucosa, duodenum rule out sprue, endoscopic biopsy: - No significant diagnostic abnormalities present. - Negative for villous blunting or increase in intraepithelial lymphocytes. . B. Gastric mucosa, gastritis rule out H. pylori, endoscopic biopsy: - Mild chronic active gastritis with features of reactive gastropathy and focal intestinal metaplasia. - Negative for atrophy or dysplasia. - Negative for Helicobacter pylori (properly controlled immunohistochemical stain performed). . C. Gastric mucosa, thickened gastric fold, endoscopic biopsy: - Mild reactive gastropathy with hyperplastic changes. - Negative for intestinal metaplasia or atrophy. - Negative for Helicobacter pylori (properly controlled immunohistochemical stain performed). . D. Large intestine mucosa, random colon to rule out microscopic colitis, endoscopic biopsy: - Scattered rare focus of acute cryptitis associated with apoptotic bodies (please see comment). - Negative for dysplasia or malignancy. . E. Polyp, sigmoid colon, endoscopic biopsy: - Tubular adenoma. - Negative for high-grade dysplasia. . (IUV:equine manager; 12/05/2019) MBR 12/05/2019 1222 Local . 02 Comment: [address] [address] PATHOLOGY RPT PROCEDURE Name: ROBBIN BENNETT YI Room #: REG CLI [facility]#: [id number] Admission: 12/02/19 Date of : 47 Discharge: Report #: [id number] Path Case #: [id number] Sections of the colonic mucosa designated "random colon" show focal cryptitis, and a moderately cellular lamina propria composed predominantly of lymphocytes and plasma cells and occasional eosinophils. Surface ulceration is not identified. There are no crypt abscesses, granulomas or viral inclusions. The process affects all the fragments with a similar intensity. Given the description, the differential diagnosis includes a resolving episode of colitis, focal acute colitis of self-limited etiology, acute diverticulitis, or medication/drug induced colitis. Please correlate with clinical as well as endoscopic findings. (IUV:equine manager; 12/05/2019) . 02 Electronically signed: . Jessica Thayer MD, Pathologist NPI- [id number] . 01 Gross description: . A. Received in formalin labeled "Donald, Illa, BX of duodenum, rule out sprue," are 4 segments of smith soft tissue measuring 1.1 x 0.6 x 0.2 cm in aggregate dimensions and ranging from 0.2 to 0.5 cm in maximum dimension. The specimen is submitted entirely in cassette A1. . B. Received in formalin labeled "Donald, Illa, BX of gastritis, rule out H. pylori," are 2 segments of smith soft tissue measuring 1.1 x 0.3 x 0.3 cm in aggregate dimensions and ranging from 0.5 to 0.6 cm in maximum dimension. The specimen is submitted entirely in cassette B1. . C. Received in formalin labeled "Donald, Illa, BX of thickened gastric fold," are 3 segments of smith soft tissue measuring 0.9 x 0.9 x 0.2 cm in aggregate dimensions and ranging from 0.3 to 0.7 cm in maximum dimension. The specimen is submitted entirely in cassette C1. . D. Received in formalin labeled "Donald, Illa, random colon BX, rule out microscopic colitis," are 3 segments of smith soft tissue measuring 1.2 x 0.6 x 0.2 cm in aggregate dimensions and ranging from 0.4 to 0.8 cm in maximum dimension. The specimen is submitted entirely in cassette D1. . E. Received in formalin labeled "Donald, Illa, polyp at sigmoid," are 2 segments of smith soft tissue measuring 0.9 x 0.3 x 0.2 cm in aggregate dimensions and ranging from 0.4 to 0.5 cm in maximum dimension. The specimen is submitted entirely in cassette E1. (TSD; 12/02/2019) TOB/TOB 12/02/2019 1931 Local . 02 Pathologist provided ICD-10: K29.50, K31.9, K63.9, D12.5 . 02 CPT . 221273, 124748, 770134, 857307, 260261, [id number] [facility] [address] [place] [address] PATHOLOGY RPT PROCEDURE Name: DONALDROBBIN YI Room #: REG [facility].#: [id number] Admission: 12/02/19 Date of : 47 Discharge: Report #: [id number] Path Case #: [id number] Specimen Comment: A courtesy copy of this report has been sent to [phone], [phone] Specimen Comment: [phone] Specimen Comment: Report sent to / DR CARRERA Performed at: 01 [facility] [address], [place] [id number] MD Zaire Pimentel MD Phone: [phone] Performed at: [address] [facility] [address] [id number] MD Jessica Thayer MD Phone: [phone]
--- NOTE | 2019-12-07 08:18 | P ---
[facility] [place] [address] [place] [address] PROCEDURE REPORT Name: ROBBIN BENNETT Room #: REG [facility]#: [id number] Admission: 12/02/19 Attend Phys: Stan Benson Discharge: Date of : 47 Report #: [id number] THIS REPORT FOR: //name// CC: Stan Bhatia MD DATE OF SERVICE: 12/02/2019 PROCEDURE PERFORMED: Colonoscopy with biopsies. HISTORY OF PRESENT ILLNESS: The patient is a 74-year-old female with left lower quadrant abdominal pain. This has been ongoing for several months. It is fairly constant. She has a previous history of recurrent diverticulitis and actually underwent previous partial sigmoid resection in 2018. She also has a previous history of C. diff x 2. She does report intermittent diarrhea. Denies any blood in her stools. Her last colonoscopy was by myself on 05/10/2018. Prior to her resection, tubular adenomatous polyps removed at that time, biopsies were negative for microscopic colitis. She has no family history of colon cancer. DESCRIPTION OF PROCEDURE: The risks and benefits of the procedure were explained to the patient, those risks including but not limited to bleeding, perforation and the risk of sedation. She understood these risks and gave informed consent. Sedation was given using propofol per anesthesia. Next, a digital rectal exam was initially performed, which showed small external hemorrhoids, otherwise normal. Next, using a standard Olympus colonoscope, the scope was placed in the patient's anus and advanced under direct vision to the cecum. The overall prep was good. The cecum and ileocecal valve were normal in appearance. Terminal ileum was intubated and normal in appearance. There was once again pandiverticulosis noted throughout the ascending, transverse, and descending colon. No evidence of inflammation. No colitis was noted. In the remaining sigmoid colon, multiple diverticuli were noted and a single 4 mm sessile polyp was noted. This was removed with cold forceps. Because of her history of intermittent diarrhea, random biopsies were obtained to rule out microscopic colitis. The surgical anastomosis was well healed and widely patent noted in the rectosigmoid area of the rectum. The rectal mucosa was normal. On retroflexion, small nonbleeding internal hemorrhoids were noted. The scope was then withdrawn and the procedure terminated. The patient tolerated the procedure well. IMPRESSION: 1. Pandiverticulosis. No evidence of acute diverticulitis. 2. Small colon polyp. 3. Well healed and widely patent surgical anastomosis. 4. Internal and external hemorrhoids. [address] [address] PROCEDURE REPORT Name: ROBBIN BENNETT Room #: REG [facility]#: [id number] Admission: 12/02/19 Attend Phys: Stan Benson Discharge: Date of : 47 Report #: [id number] RECOMMENDATIONS: 1. Await biopsy results. 2. We will start Levsin on a p.r.n. basis. If no improvement, consider CT scan of the abdomen and pelvis at that time. Thank you for allowing me to participate in her care. <ELECTRONICALLY SIGNED> By: Stan Shah MD 12/07/19 0818 1057 1159 Stan Shah MD /nt
--- NOTE | 2019-12-07 08:18 | P ---
[facility] [place] [address] [place] [address] PROCEDURE REPORT Name: ROBBIN BENNETT Room #: REG [facility]#: [id number] Admission: 12/02/19 Attend Phys: Stan Benson Discharge: Date of : 47 Report #: [id number] THIS REPORT FOR: //name// CC: Stan Bhatia DATE OF SERVICE: 12/02/2019 PROCEDURE PERFORMED: Upper endoscopy with biopsies. HISTORY OF PRESENT ILLNESS: The patient is a 74-year-old female with a history of intermittent dysphagia. This has been ongoing for several months. No previous history of upper endoscopy. She denies any significant heartburn. She does report intermittent diarrhea symptoms. She is scheduled for a colonoscopy today as well. DESCRIPTION OF PROCEDURE: The risks and benefits of the procedure were explained to the patient, those risks including but not limited to bleeding, perforation and the risk of sedation. She understood these risks and gave informed consent. Sedation was given using propofol per anesthesia. Next, using a standard Olympus upper endoscope, the scope was placed in the patient's mouth and advanced under direct vision through the esophagus, stomach and into the second portion of the duodenum. The larynx was normal in appearance. The upper and mid esophagus was normal. In the distal esophagus, severe grade C erosive esophagitis was noted with mild narrowing of the distal esophagus. Upon entering the stomach, a small hiatal hernia was noted. The gastric fundus and mid body were normal. On the angularis, there was a small thickened fold that was approximately 2 cm in length. Biopsies were obtained. In the gastric antrum, there was a mild gastritis with several small erosions. Biopsies were obtained to rule out H. pylori. The pylorus was normal and patent. The duodenal bulb, first and second portion were all normal. Biopsies were obtained to rule out the possibility of celiac sprue. Because of the patient's significant esophagitis, I did not proceed with esophageal dilation today. At this point, the scope was then withdrawn and the procedure terminated. The patient tolerated the procedure well. IMPRESSION: 1. Severe grade C erosive esophagitis with narrowing of distal esophagus. 2. Small hiatal hernia. 3. Thickened fold on the angularis. 4. Gastritis with erosions. RECOMMENDATIONS: 1. Await biopsy results. 2. Recommend daily PPI therapy. [address] [address] PROCEDURE REPORT Name: ROBBIN BENNETT Room #: REG [facility]#: [id number] Admission: 12/02/19 Attend Phys: Stan Benson Discharge: Date of : 47 Report #: [id number] 3. Would recommend repeat upper endoscopy in approximately 2-3 months. If dysphagia continues, we will plan on dilation at that time. Thank you for allowing me to participate in her care. <ELECTRONICALLY SIGNED> By: Stan Shah MD 12/07/19 0818 1018 1058 Stan Shah, /giovanni
== END | disposition home or self-care (01) ==
LOC: GI 08:01
DX: R10.32 Left lower quadrant pain (principal); R19.7 Diarrhea, unspecified; D12.5 Benign neoplasm of sigmoid colon; K62.89 Other specified diseases of anus and rectum; K57.30 Diverticulosis of large intestine without perforation or abscess without bleeding; K64.8 Other hemorrhoids; K29.50 Unspecified chronic gastritis without bleeding; K22.10 Ulcer of esophagus without bleeding; K31.9 Disease of stomach and duodenum, unspecified; K64.4 Residual hemorrhoidal skin tags; K44.9 Diaphragmatic hernia without obstruction or gangrene; I10 Essential (primary) hypertension; F32.9 Major depressive disorder, single episode, unspecified; F41.9 Anxiety disorder, unspecified; Z86.010 Personal history of colon polyps; Z98.0 Intestinal bypass and anastomosis status; Z98.890 Other specified postprocedural states; Z79.899 Other long term (current) drug therapy; Z85.828 Personal history of other malignant neoplasm of skin; Z90.49 Acquired absence of other specified parts of digestive tract; Z90.710 Acquired absence of both cervix and uterus; Z98.41 Cataract extraction status, right eye; Z98.42 Cataract extraction status, left eye; Z87.19 Personal history of other diseases of the digestive system; Z88.8 Allergy status to other drugs, medicaments and biological substances; Z79.82 Long term (current) use of aspirin
CPT/HCPCS: 62110; 62900

== ENCOUNTER → 2019-12-07 | Outpatient (CLI) | payer OTHER, MEDICARE | LOC: MRI 12:16 | DX: M51.36 Other intervertebral disc degeneration, lumbar region (principal); M48.061 Spinal stenosis, lumbar region without neurogenic claudication; M41.86 Other forms of scoliosis, lumbar region; Z88.1 Allergy status to other antibiotic agents; Z88.5 Allergy status to narcotic agent; Z88.8 Allergy status to other drugs, medicaments and biological substances ==

== ENCOUNTER → 2020-04-18 | Outpatient (CLI) | payer OTHER, MEDICARE ==
[~2020-04-18] VITALS: Ht 157.5 cm; Wt 72.6 kg
[~2020-04-18] MED LIST changes: +ZANAFLEX4 M2 PO
--- NOTE | 2020-04-18 17:28 | P ---
[facility] [place] [address] PROCEDURE REPORT Name: ROBBIN BENNETT Room #: [facility] Abdiel#: [id number] Admission: 04/18/20 Attend Phys: Stan Benson Discharge: Date of : 47 Report #: [id number] THIS REPORT FOR: cc: Jonathan Bhatia MD, Neal A. MD McElhinney, Christian C. MD ~ CC: Stan Bhatia MD DATE OF SERVICE: 04/18/2020 PROCEDURE PERFORMED: Upper endoscopy with esophageal dilation. HISTORY OF PRESENT ILLNESS: The patient is a 74-year-old female who underwent an upper endoscopy by myself on 12/02/2019 for history of intermittent dysphagia. At that time, denied any significant heartburn. EGD showing severe grade C erosive esophagitis at that time with narrowing of the distal esophagus, small hiatal hernia was noted. There was a mild thickened fold on the angularis, mild gastritis with some erosions. Gastric biopsies were negative for H. pylori, thickened fold also negative. Small bowel biopsies at that time negative for celiac sprue. The patient was started on daily PPI therapy and she now returns for repeat upper endoscopy to rule out the possibility of Tilley's esophagus. She does report her dysphagia is better, but still has mild dysphagia at times. DESCRIPTION OF PROCEDURE: The risks and benefits of the procedure were explained to the patient, those risks including but not limited to bleeding, perforation and the risk of sedation. She understood these risks and gave informed consent. Sedation was given using propofol per anesthesia. Next, using a standard Olympus upper endoscope, the scope was placed to the patient's mouth and advanced under direct vision through the esophagus, stomach and into the second portion of the duodenum. The esophagus was normal throughout. No evidence of esophagitis. No obvious stricture was noted. GE junction was normal. Upon entering the stomach, a small hiatal hernia was once again noted. Overall, the gastric mucosa was normal other than mild gastritis. Previous biopsies were negative for H. pylori. The pylorus was normal and patent. The duodenal bulb, first and second portion were all normal. The scope was then brought back up into the patient's stomach and a Savary guidewire was inserted through the scope, leaving the guidewire in place as the scope was then withdrawn. Next, a 48-Nepali Savary dilation of the esophagus was then performed without difficulty. The wire and dilator were removed. The scope was reintroduced into the patient's stomach. A small mucosal tear was noted in the proximal esophagus. No evidence of bleeding, otherwise negative. The scope was then withdrawn and the procedure terminated. The patient tolerated the procedure well. [address] [address] PROCEDURE REPORT Name: ROBBIN BENNETT Room #: [facility] Abdiel#: [id number] Admission: 04/18/20 Attend Phys: Stan Benson Discharge: Date of : 47 Report #: [id number] IMPRESSION: 1. Previous esophagitis well healed. 2. Small hiatal hernia. 3. Mild gastritis. RECOMMENDATIONS: 1. Observe the patient post-dilation. 2. Continue daily PPI therapy long-term. Thank you for allowing me to participate in her care. <ELECTRONICALLY SIGNED> By: Stan Shah MD 04/18/20 1728 1020 1050 Stan Shah MD /nt
== END | disposition home or self-care (01) ==
LOC: GI 07:58
DX: R13.10 Dysphagia, unspecified (principal); K29.70 Gastritis, unspecified, without bleeding; K44.9 Diaphragmatic hernia without obstruction or gangrene; I10 Essential (primary) hypertension; F32.9 Major depressive disorder, single episode, unspecified; F41.9 Anxiety disorder, unspecified; Z98.890 Other specified postprocedural states; Z79.899 Other long term (current) drug therapy; Z85.828 Personal history of other malignant neoplasm of skin; Z90.710 Acquired absence of both cervix and uterus; Z90.49 Acquired absence of other specified parts of digestive tract; Z98.41 Cataract extraction status, right eye; Z98.42 Cataract extraction status, left eye; Z98.0 Intestinal bypass and anastomosis status; Z85.528 Personal history of other malignant neoplasm of kidney
CPT/HCPCS: 62110; 62900

== ENCOUNTER 2020-08-01 13:22 | Inpatient (IN) | payer OTHER, MEDICARE ==
[~2020-08-01] VITALS: Ht 157.5 cm; Wt 70.3 kg
[2020-08-01 13:22] VITALS: BP 145/56
[2020-08-01 16:35] LABS: ABSOLUTE NEUTROPHILS 9.5 thou/uL (1.4-8.2); BASOPHILS 0.3 % (0.0-2.0); EOSINOPHILS 0.3 % (0.0-3.0); HEMATOCRIT 36.4 % (37.0-47.0); HEMOGLOBIN 12.5 gm/dL (12.0-15.0); LYMPHOCYTES 7.7 % (24.0-44.0); MCH 31.1 pg (26.0-34.0); MCHC 34.3 g/dL (28.0-37.0); MCV 90.8 fL (80.0-100.0); MONOCYTES 4.2 % (1.0-8.0); PLATELET COUNT 149 thou/uL (150-400); POLYS 87.5 % (36.0-66.0); RBC 4.01 mil/uL (4.20-5.00); RDW 17.1 % (10.5-14.5); WBC 10.8 thou/uL (4.0-11.0)
[2020-08-01 16:42] LABS: ANION GAP 12 mmol/L (7-16); BUN 13 mg/dL (7-18); CALCIUM 8.9 mg/dL (8.5-10.1); CHLORIDE 103 mmol/L (98-107); CO2 24 mmol/L (21-32); CREATININE 1.2 mg/dL (0.6-1.0); GLUCOSE 183 mg/dL (74-106); POTASSIUM 3.5 mmol/L (3.5-5.1); SODIUM 139 mmol/L (136-145)
[2020-08-01 16:51] LABS: ALBUMIN 3.3 g/dL (3.4-5.0); MAGNESIUM 1.9 mg/dL (1.8-2.4); SGOT 37 U/L (15-37); SGPT 37 U/L (30-65); TOTAL BILIRUBIN 0.4 mg/dL (0.2-1.0); TOTAL PROTEIN 6.6 g/dL (6.4-8.2); TROPONIN-I <0.06 ng/mL (<0.06)
[2020-08-01] MEDS ORDERED: OMEPRAZOLE 20 M20 M1 PO (17:58)
[2020-08-01] MEDS ORDERED: ESTRADIOL42.5 GM VG (17:59)
[2020-08-01 18:19] VITALS: BP 115/45
--- NOTE | 2020-08-01 18:32 | NUR ---
ATTEMPTED TO CALL REPORT, LINE KEPT RINGING, WILL GO DO BEDSIDE REPORT
[2020-08-01 18:54] VITALS: BP 115/45
[2020-08-01 19:24] VITALS: BP 118/63
--- NOTE | 2020-08-01 22:50 | NUR ---
ADMITTING DOCTOR CHANGED TO DR CARRERA. ORDER WAS UNDER DR OWENS BY ERROR. THIS INFO NOTED FROM THE ER DOC PROGRESS NOTES AND COMMUNICATION WITH DR OWENS, DR MARTÍNEZ AND DR CARRERA.
[2020-08-02] VITALS (10 sets, daily range): BP systolic 92–135; BP diastolic 5–72
--- NOTE | 2020-08-02 00:54 | NUR ---
ASSUMED PT CARE AT 1999. PT VITAL SIGNS STABLE. PT IS COMPLAINING OF 10 OUT OF 10 PAIN. HYDROMORPHONE GIVEN BY BESSIE ([place]). PT STATES THAT SHE IS A LITLLE MORE CONFORTABLE. PT STATES THAT SHE IS NOT HAVING ANY RELIEF. SECOND DOSE IS GIVEN AT 2212 BY MO ([place]). PT ATE SOON SHE MADE IT TO THE FLOOR. PT VOMITED YELLOW FLUID. ODANESTRON WAS ADMINISTERED AT 2204 FROM MO ([place]). GRACIA CATHETER WAS PLACED. PT IS VOIDING FINE. PT IS ALSEEP IN THE ROOM. PT HAD A MOMENT OF CONFUSION STATING "HOW DID YOU GET INTO MY HOUSE" I EXPLAINED TO HER WHERE SHE WAS AND SHE WAS RE ORIENTED TO THE ROOM AND WHERE SHE WAS. PT UNDERSTANDS THAT SHE IS GOING TO HAVE SURGERY 08/02/20. WILL CONTINUE TO MONITOR.
[2020-08-02 05:29] LABS: HEMATOCRIT 36.3 % (37.0-47.0); MCH 30.5 pg (26.0-34.0); MCHC 32.9 g/dL (28.0-37.0); MCV 92.8 fL (80.0-100.0); RBC 3.92 mil/uL (4.20-5.00); RDW 17.5 % (10.5-14.5)
[2020-08-02 05:41] LABS: ALBUMIN 3.2 g/dL (3.4-5.0); CALCIUM 8.5 mg/dL (8.5-10.1); CREATININE 1.6 mg/dL (0.6-1.0); PHOSPHORUS 5.1 mg/dL (2.5-4.9); POTASSIUM 4.1 mmol/L (3.5-5.1)
--- NOTE | 2020-08-02 07:34 | EKG ---
[facility] [place] [address] ELECTROCARDIOGRAM REPORT Name: ROBBIN BENNETT Room #: 445- ADM IN M.R.#: [id number] Admission: 08/01/20 Attend Phys: Jonathan Bhatia MD Discharge: Date of : 47 Report #: [id number] THIS REPORT FOR: cc: Jonathan Bhatia MD, Neal A. 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 : 1945 Requested By: Serafin Nevarez Order Number: [id number] MD: Gene Linder Measurements Intervals [place] Rate: 88 P: 21 IL: 143 QRS: -5 QRSD: 85 T: 13 QT: 369 QTc: 447 Interpretive Statements Sinus rhythm No significant abnormality Compared to ECG 02/27/2011 07:56:13 No significant changes Electronically Signed On 08-02-2020 7:34:11 CDT by Gene Linder [email or web address] <ELECTRONICALLY SIGNED> By: Gene Linder MD, [facility] 08/02/20 0734 1707 1707 Gene Linder MD, [facility] /EPI
--- NOTE | 2020-08-02 09:12 | NUR ---
ASSESSMENT: CM REVIEWED CHART AND SPOKE WITH PATIENT. PT IS ALERT AND ORIENTED X4. PT IS HERE DUE TO HIP FRACTURE AND WRIST FX. PTS REPORTS LIVING IN A HOUSE WITIH HER . PT REPORTS NO STEPS TO ENTER AND NO STEPS TO GET TO HER BEDROOM. PT REPORTS THAT SHE HAS A CANE AND WALKER AT HOME FOR AMBULATION. PT REPORTS SHE IS INDEPENDENT WITH ADLS. PT REPORTS SHE HAS NOT HAD HH IN THE PAST NOR BEEN TO A SNF. PLANS ARE FOR PATIENT TO HAVE ORIF TODAY AND CM WILL CONTNUE TO FOLLOW TO ASSIST NEEDED.
--- NOTE | 2020-08-02 11:37 | HC ---
[facility] [place] [address] CONSULTATION Name: ROBBIN BENNETT Room #: 445- ADM IN M.R.#: [id number] Admission: 08/01/20 Attend Phys: Jonathan Bhatia MD Discharge: Date of : 47 Report #: [id number] THIS REPORT FOR: cc: Jonathan Bhatia MD, Neal A. MD Clymer, David J. MD ~ CC: Inder Bhatia DATE OF SERVICE: 08/01/2020 CHIEF COMPLAINT: Comminuted complex fracture, left distal radius and comminuted complex fracture, left proximal femur. HISTORY OF PRESENT ILLNESS: This frail, but still active and functional 75-year-old female fell at home injuring both the left wrist and the left hip. She did not strike her head. She had no loss of consciousness. She complains of no other areas of injury. She is seen and admitted through the Emergency Department to the Trauma Service for further treatment. At the time of my evaluation, she is alert and oriented. She recalls the event. She does not have a loss of consciousness. She did not strike her head. She has good movement of the right upper extremity at the shoulder, elbow, wrist and hand without discomfort or deformity. Left upper extremity demonstrates good movement at the shoulder and elbow, but the wrist demonstrates obvious deformity with a dorsally displaced distal radius fracture. The skin is intact with mild bruising and minimal abrasion. The wrist was reduced under hematoma block and a splint applied. The neck and back appear to be normal without new injuries. The pelvis is stable and well aligned. The right lower extremity reveals satisfactory alignment, range of motion without discomfort. The left lower extremity is notable for shortened and slightly rotated extremity consistent with a proximal femur fracture. She complains of pain with any attempted movement about the left hip. X-rays of the left wrist reveal a badly comminuted, shortened and displaced fracture of the distal radius. X-rays of the left hip and pelvis reveal an intertrochanteric fracture of the left proximal femur with shortening and some rotational displacement. IMPRESSION: Complex comminuted fractures of the left distal radius in the left proximal femur. I have discussed these with the patient and suggested going ahead with surgical repair. Pending scheduling and medical clearance, we may be able proceed tomorrow late in the day. I will tentatively place her on the surgery schedule for about 5 o'clock on the afternoon of 08/02/2020. We will [address] [address] CONSULTATION Name: ROBBIN BENNETT Room #: 445-P [facility] IN ..#: [id number] Admission: 08/01/20 Attend Phys: Jonathan Bhatia MD Discharge: Date of : 47 Report #: [id number] plan for a volar locking plate for the distal radius fracture and TFN nail for the left hip fracture. <ELECTRONICALLY SIGNED> By: Luis Cartwright MD 08/02/20 1137 1756 1838 Luis Cartwright MD /nt
[2020-08-03 03:00] VITALS: BP 137/76
--- NOTE | 2020-08-03 03:49 | NUR ---
ASSUMED PT CARE AT 1900.PT WAS ALERT/CONFUSED AND DROWSY WHEN SHE CAME TO THE FLOOR.PT WAS OBSERVED CALLING OUT FOR HER IN HER SLEEP,PT STATED SHE WAS HAVING A BAD DREAM.PT ON 2L/NC BUT SHE CONSTANTLY TAKES HER NASAL CANNULA OFF.ICE PACK TO HER L HIP AND L WRIST.PT REPOSITIONED WHILE IN BED.BRUISING NOTED TO HER ARMS,CHEST AND ABD.GRACIA CATH TO DD.PT SLEEPING ON HER BED AT THIS TIME.YUSUF RAMOS AND SCD TO HER BLE.INCENTIVE SPIROMETER IN USE WHILE PT IS AWAKE.FALL PRECAUTIONS IN PLACE,CALL LIGHT WITHIN REACH.
[2020-08-03 07:56] LABS: HEMATOCRIT 28.2 % (37.0-47.0); MCH 31.4 pg (26.0-34.0); MCHC 34.6 g/dL (28.0-37.0); MCV 90.9 fL (80.0-100.0); RBC 3.1 mil/uL (4.20-5.00); WBC 9.1 thou/uL (4.0-11.0)
[2020-08-03 08:00] VITALS: BP 143/73
[2020-08-03 08:03] LABS: HEMOGLOBIN 9.8 gm/dL (12.0-15.0)
--- NOTE | 2020-08-03 09:13 | O ---
[facility] [place] [address] OPERATIVE REPORT Name: ROBBIN BENNETT Room #: 445-P ADM IN M.R.#: [id number] Admission: 08/01/20 Attend Phys: Jonathan Bhatia MD Discharge: Date of : 47 Report #: [id number] THIS REPORT FOR: cc: Jonathan Bhatia MD, Neal A. MD Clymer, David J. MD ~ CC: Luis Bhatia DATE OF SERVICE: 08/02/2020 PREOPERATIVE DIAGNOSIS: Comminuted fracture, left distal radius and comminuted fracture left proximal femur intertrochanteric region. POSTOPERATIVE DIAGNOSIS: Comminuted fracture, left distal radius and comminuted fracture left proximal femur intertrochanteric region. PROCEDURES: 1. Open reduction and internal fixation of left proximal femur fracture with antegrade intramedullary femoral nail fixation. 2. Open reduction and internal fixation of left distal radius fracture. SURGEON: Luis Cartwright MD INDICATIONS: This 75-year-old female fell at home injuring the left wrist and the left hip. X-rays confirm rather badly comminuted fractures in both areas. We have discussed treatment options and elected to go ahead with surgical repair using an antegrade TFN nail for the hip and a locking volar plate for the left wrist. DESCRIPTION OF PROCEDURE: The patient was taken to the operating room where she was placed under general anesthesia. Prophylactic intravenous antibiotics were administered. She was positioned on the fracture table and extremities protected and padded. Gentle traction was applied to both lower extremities and she was positioned appropriately for C-arm visualization. The left intertrochanteric femur fracture reduced acceptably and was visualized with C-arm. The lateral aspect of the left hip and thigh were meticulously prepped and draped. A skin incision was made just proximal to the greater trochanter and a guidewire passed down the canal. The tip of the trochanter was opened with a reamer and a Synthes TFN nail was inserted advancing this to an appropriate level. The lateral guidewire was placed in the mid to lower aspect of the femoral neck and head and a 95 mm Healicoil blade was inserted, which positioned nicely. A gentle compression was applied using the compression device and the fracture seemed to align acceptably. The proximal interlock screw was tightened down. A distal locking screw was then placed using the outrigger guide. Its position was checked with C-arm and felt to be [facility] [address] [place] [address] OPERATIVE REPORT Name: ROBBIN BENNETT Room #: 445-P [facility] IN ..#: [id number] Admission: 08/01/20 Attend Phys: Jonathan Bhatia MD Discharge: Date of : 47 Report #: [id number] satisfactory. The 3 small incisions were closed with 0 Monocryl and skin tien. A sterile dressing was applied. The patient was then repositioned and taken out of traction. Bony prominences were carefully padded. The left arm was then positioned on a fracture table. The arm and hand were meticulously prepped and draped. An arm tourniquet was inflated to 250 mmHg. A volar longitudinal skin incision was made. This was carried through subcutaneous tissues and fascia. The pronator quadratus was elevated from the radial surface. The fracture was identified and reduced. There was moderate comminution making accurate reduction difficult. Satisfactory alignment was established. The Acumed volar locking plate system was utilized. A narrow left plate was selected. This was positioned and secured with several smooth K wires. The position of the plate and the fracture was confirmed with C-arm and felt to be satisfactory. Five distal screws and 2 proximal screws were placed, each with acceptable purchase. C-arm views demonstrate satisfactory alignment and fixation. The tourniquet was then deflated. Good hemostasis was confirmed. The fascia and subcutaneous tissues were closed with 2-0 Monocryl. The skin was closed with 4-0 Prolene supplemented with Steri-Strips. A sterile dressing and plaster splint were placed. The patient was awakened and returned to recovery room in satisfactory condition. <ELECTRONICALLY SIGNED> By: Luis Cartwright MD 08/03/20912 00 09 Luis Cartwright MD /nt
--- NOTE | 2020-08-03 13:51 | NUR ---
ON-GOING ASSESSMENT: CM REVIEWED CHART AND SPOKE WITH PATIENT AND HER . 5N HAD BEEN CONSULTED FOR PATIENT BUT FEEL SHE IS MORE APPROPRIATE FOR SNF. CM DISCUSSED SNF OPTIONS WITH PT AND SHE WANTED A REFERRAL TO [facility]. CM FAXED REFERRAL AND THEY CAN ACCEPT PT. DAYS 1-20 ARE COVERED AT 100 PERCENT AND DAYS 21-100 SHE WOULD OWE 88/DAY. CM DISCUSSED THIS WITH PT AND HER AND THEY ARE AGREEABLE WITH PLAN. JAMILA SPOKE WITH DR. CARRERA AND PLANS ARE TO DISCHAREG TOMORROW TO [facility]. MARY SARAVIA STATING TRANSPORTATION IS ARRANGED FOR 1300. DISCHARGE ORDERS WILL NEED TO BE FAXED TO [facility] FAX:[phone] AND REPORT CALLED TO [phone]. CHART COPY WILL NEED TO BE SENT WITH PATIENT.
--- NOTE | 2020-08-03 14:11 | NUR ---
Assumed care of pt at 0700. Pain controlled with prn pain meds. Dressings c/d/i. Barton catheter in place. Pt will d/c tomorrow to SNF. IVF infusing. Pt went to chair and back to bed with physical therapy. Call light within reach. Will continue to monitor.
[2020-08-03 16:35] VITALS: BP 172/71
[2020-08-03 20:07] VITALS: BP 145/78
--- NOTE | 2020-08-04 01:48 | NUR ---
PT ALERT AND CONFUSED AT TIMES.PT C/O PAIN ON HER L HIP AND L ARM.MANAGED WITH MED.DRSG TO HER HIP AND ARM INTACT.GRACIA CATH TO DD.PT REPOSITIONED WHILE IN BED.IVF INFUSING ORDERED.PT SLEEPING ON HER AMINA AT THIS TIME.FALL PRECAUTIONS IN PLACE,CALL LIGHT WITHIN REACH.
[2020-08-04 05:29] LABS: HEMATOCRIT 27.4 % (37.0-47.0); HEMOGLOBIN 9.3 gm/dL (12.0-15.0); MCH 31.3 pg (26.0-34.0); MCHC 33.8 g/dL (28.0-37.0); MCV 92.7 fL (80.0-100.0); RBC 2.96 mil/uL (4.20-5.00); WBC 9.6 thou/uL (4.0-11.0)
[2020-08-04 05:33] VITALS: BP 144/74
[2020-08-04 08:15] VITALS: BP 135/80
--- NOTE | 2020-08-04 10:53 | NUR ---
PT DISCHARGING TODAY TO [facility] RN FAXED DC ORDERS/SUMMARY TO FACILITY SPOKE WITH MANJIT IN ADM SHE RECEIVED ORDERS AND TRANSPORT ARRANGED BY AYLA FOR 1300. PT'S (PATRICK) AT BEDSIDE NOTIFIED OF TIME OF TRANSPORT. UNIT AWARE OF DC TIME AND CHART COPY PER US. RN TO CALL REPORT TO [phone].
--- NOTE | 2020-08-04 13:17 | NUR ---
Assumed care of pt at 0700. Pt confused this am. Pain controlled with prn pain meds. Dressing c/d/i. Splint on left arm in place. Costa catheter in place. Pt still very weak when standing up, costa catheter left in place and will be removed at rehab facility when pt is able to use bedside commode. Report given to nurse at discharge facility.
== END 2020-08-04 13:21 | DRG 481 ==
LOC: ER 13:22 → EROBS 16:55 → 4S 16:55
PROVIDERS: Emergency Medicine; Orthopaedic Surgery; Surgery; ADMIT Family Medicine; ATTEND Family Medicine
PROC: 0QS704Z Reposition Left Upper Femur with Internal Fixation Device, Open Approach (ICD-10-PCS; principal; 2020-08-01)
PROC: 2W3FX1Z Immobilization of Left Hand using Splint (ICD-10-PCS; principal; 2020-08-01)
PROC: 0QS706Z Reposition Left Upper Femur with Intramedullary Internal Fixation Device, Open Approach (ICD-10-PCS; 2020-08-02)
PROC: 0PSJ04Z Reposition Left Radius with Internal Fixation Device, Open Approach (ICD-10-PCS; 2020-08-02)
DX: S72.142A Displaced intertrochanteric fracture of left femur, initial encounter for closed fracture (principal); S52.512A Displaced fracture of left radial styloid process, initial encounter for closed fracture; F05 Delirium due to known physiological condition; I10 Essential (primary) hypertension; W18.39XA Other fall on same level, initial encounter; K21.9 Gastro-esophageal reflux disease without esophagitis; Z20.828 Contact with and (suspected) exposure to other viral communicable diseases; Y93.01 Activity, walking, marching and hiking; Z90.49 Acquired absence of other specified parts of digestive tract; Z90.710 Acquired absence of both cervix and uterus; Z98.42 Cataract extraction status, left eye; Z98.41 Cataract extraction status, right eye; Z79.899 Other long term (current) drug therapy; Z79.82 Long term (current) use of aspirin; Z88.5 Allergy status to narcotic agent; Z88.8 Allergy status to other drugs, medicaments and biological substances; Y92.810 Car as the place of occurrence of the external cause; Y99.8 Other external cause status
CPT/HCPCS: 10195; 50010; 50101; 50133; 50386; 51412; 51538; 52304; 56525; 57092; 57178; 57279; 5743; 57804; 58123; 58124; 58126; 58128; 58264; 58265; 58266; 58267; 62110; 62900; 70005

== ENCOUNTER → 2020-12-19 | Outpatient (CLI) | payer OTHER, MEDICARE ==
[~2020-12-19] MED LIST changes: +ESTRADIOL42.5 GM VG; +OMEPRAZOLE 20 M20 M1 PO
== END ==
LOC: BC 11:30
PROVIDERS: ATTEND Family Medicine
DX: Z12.31 Encounter for screening mammogram for malignant neoplasm of breast (principal)

== ENCOUNTER → 2021-05-21 | Outpatient (CLI) | payer OTHER, MEDICARE | LOC: SJCVC 11:18 | PROVIDERS: ATTEND Internal Medicine Cardiovascular Disease | DX: I10 Essential (primary) hypertension (principal); I47.1 Supraventricular tachycardia; M81.0 Age-related osteoporosis without current pathological fracture; Z90.49 Acquired absence of other specified parts of digestive tract; Z88.5 Allergy status to narcotic agent; Z88.2 Allergy status to sulfonamides; Z88.8 Allergy status to other drugs, medicaments and biological substances; Z91.048 Other nonmedicinal substance allergy status; Z79.82 Long term (current) use of aspirin; Z79.899 Other long term (current) drug therapy ==

== ENCOUNTER → 2022-01-06 | Outpatient (CLI) | payer OTHER, MEDICARE | LOC: SJCVCIMAG 14:14 | PROVIDERS: ATTEND Internal Medicine Cardiovascular Disease | DX: I08.2 Rheumatic disorders of both aortic and tricuspid valves (principal); I47.1 Supraventricular tachycardia; I10 Essential (primary) hypertension; Z88.1 Allergy status to other antibiotic agents; Z88.5 Allergy status to narcotic agent; Z88.8 Allergy status to other drugs, medicaments and biological substances; Z79.82 Long term (current) use of aspirin; Z79.899 Other long term (current) drug therapy ==

== ENCOUNTER → 2022-01-08 | Outpatient (CLI) | payer OTHER, MEDICARE | LOC: BC 10:55 | PROVIDERS: ATTEND Family Medicine | DX: Z12.31 Encounter for screening mammogram for malignant neoplasm of breast (principal) ==

== ENCOUNTER → 2022-01-09 | Outpatient (CLI) | payer OTHER, MEDICARE | LOC: SJCVC 13:56 | PROVIDERS: ATTEND Internal Medicine Cardiovascular Disease | DX: I47.1 Supraventricular tachycardia (principal); R55 Syncope and collapse; I10 Essential (primary) hypertension; Z88.1 Allergy status to other antibiotic agents; Z88.5 Allergy status to narcotic agent; Z88.8 Allergy status to other drugs, medicaments and biological substances; Z79.82 Long term (current) use of aspirin; Z79.899 Other long term (current) drug therapy ==